=== PATIENT | male | born 1970 | race Two or more races ===

== ENCOUNTER 2018-04-25 12:33 | Emergency (ER) | payer OTHER ==
[2018-04-25 12:47] VITALS: BP 133/88; PULSE 84; TEMP 98.4; BMI 28.2
--- NOTE | 2018-04-25 13:02 | PDOC ---
Attending Attestation - HPI HPI: 04/25/18 13:38 Pt is a 47 yo M with a PMHx of kidney stones who presents to the ED with flank pain. Patient reports pain began one week ago which resolved. However states pain returned today. Patient is currently fasting for Ramadan therefore reports decreased fluid intake. Patient denies fever,chills, n/v. PCP: Dr. Jhon Serrato - Medical Decision Making 04/25/18 13:38 Documentation prepared by Heaven Bocanegra, acting as medical laboratory technical officer for Pippa Beltran MD <Heaven Bocanegra - Last Filed: 04/25/18 13:38> - Resident Resident Name: Daljit Killian - ED Attending Attestation I have performed the following: I have examined & evaluated the patient, The case was reviewed & discussed with the resident, I agree w/resident's findings & plan, Exceptions are as noted - Physicial Exam PE: GENERAL: Awake, alert, and fully oriented, in no acute distress HEAD: No signs of trauma EYES: PERRLA, EOMI, sclera anicteric, conjunctiva clear ENT: Auricles normal inspection, hearing grossly normal, nares patent, oropharynx clear without exudates. Moist mucosa NECK: Normal ROM, supple, no lymphadenopathy, JVD, or masses LUNGS: Breath sounds equal, clear to auscultation bilaterally. No wheezes, and no crackles HEART: Regular rate and rhythm, normal S1 and S2, no murmurs, rubs or gallops ABDOMEN: Soft, nontender, normoactive bowel sounds. No guarding, no rebound. No masses EXTREMITIES: Normal range of motion, no edema. No clubbing or cyanosis. No cords, erythema, or tenderness NEUROLOGICAL: Cranial nerves II through XII grossly intact. Normal speech, normal gait SKIN: Warm, Dry, normal turgor, no rashes or lesions noted. SPINE: No midline tenderness. +Soft tissue tenderness to low back bilaterally. - Medical Decision Making 04/25/18 14:02 Pt with history of kidney stones, presenting with B/L low back pain. He is currently fasting for Ramadan. Poss kidney stone vs pyelo vs musculoskeletal low back pain. <Pippa Beltran - Last Filed: 04/25/18 14:12>
--- NOTE | 2018-04-25 13:03 | PDOC ---
History of Present Illness - General Chief Complaint: Pain, Acute Stated Complaint: KIDNEY PAIN Time Seen by Provider: 04/25/18 12:48 - History of Present Illness Initial Comments: 04/25/18 13:31 The patient is a 47 year old male with a history of kidney stones who presents for evaluation of flank pain. The patient reports an episode of bilateral flank pain 1 week ago that resolved after a few hours. He notes a second episode of flank pain with the right worse than the left today prompting his presentation to the ED for evaluation. He notes that he is currently fasting Ramadan. He describes the pain as a dull ache, but otherwise denies fevers, chills, burning or pain on urination, blood in his urine, nausea, vomiting, abdominal pain, chest pain, or SOB. Past History - Past Medical History Allergies/Adverse Reactions: Allergies Allergy/AdvReac Type Severity Reaction Status Date / Time No Known Allergies Allergy Verified 04/25/18 12:44 COPD: No - Suicide/Smoking/Psychosocial Hx Smoking History: Current some day smoker Number of Cigarettes Smoked Daily: 1 Information on smoking cessation initiated: No Review of Systems - Review of Systems Comments:: 04/25/18 13:37 Constitutional: No fevers, chills, fatigue, malaise HEENT: No Rhinorrhea, nasal congestion, visual changes Cardiovascular: No chest pain, syncope, palpitations, lightheadedness Respiratory: No Cough, SOB, Hemoptysis, Gastrointestinal: No Abdominal pain, Nausea, Vomiting, Constipation, Diarrhea, Melena Genitourinary: Flank Pain. No Dysuria, Frequency, Urgency, Hesitancy, Hematuria , Musculoskeletal: No Myalgia, arthralgia Skin: No rashes, itching, bruising, pallor Neurologic: No Headache, Dizziness, Numbness, Weakness, or Tingling Psychiatric: No Hallucinations. No SI or HI *Physical Exam - Vital Signs Last Vital Signs Temp Pulse Resp BP Pulse Ox 98.4 F 84 18 133/88 98 04/25/18 12:45 04/25/18 12:45 04/25/18 12:45 04/25/18 12:45 04/25/18 12:45 - Physical Exam Comments: 04/25/18 13:38 General Appearance: Nourished. No Apparent Distress HEENT: EOMI, GUILLERMO. No Pharyngeal Erythema, Tonsillar Exudate, Tonsillar Erythema Neck: No Cervical Lymphadenopathy Respiratory/Chest: Lungs Clear, Normal Breath Sounds. No Crackles, Rales, Rhonchi, Wheezing Cardiovascular: Regular Rhythm, Regular Rate. No Murmur, Gallops, Rubs Gastrointestinal/Abdominal: Normal Bowel Sounds, Soft. No Guarding, Rebound, Tenderness Musculoskeletal: Bilateral CVA Tenderness R worse than L Extremity: Normal Capillary Refill Integumentary: Normal Color, Dry, Warm Neurologic: Fully Oriented, Alert, Normal Mood/Affect, Normal Response, ED Treatment Course - LABORATORY CBC & Chemistry Diagram: 04/25/18 14:13 04/25/18 14:13 Medical Decision Making - Medical Decision Making 04/25/18 13:39 The patient is a 47 year old male with a history of kidney stones who presents for evaluation of flank pain. Differential includes but is not limited to: Kidney Stone, UTI, Pyelonephritis, infectious, metabolic derangement. Given the patient's history, we will obtain a cbc, cmp, ua, and spiral CT to evaluate further for possible etiologies. We will treat with iv fluids in the meantime and continue to monitor and reassess. 04/25/18 20:11 CBC, cmp, ua are unremarkable. CT abdomen demonstrates a large gallstone, however no evidence of infectious or acute processes as read by our radiologist. We are comfortable discharging the patient home at this time with primary care provider and surgery follow up. We discussed the results, plan, and return precautions with the patient who voiced understanding and is agreeable with the plan. *DC/Admit/Observation/Transfer Diagnosis at time of Disposition: Flank pain - Discharge Dispostion Disposition: HOME Condition at time of disposition: Stable Decision to Admit order: No - Referrals Referrals: Jhon Serrato MD [Primary Care Provider] - Bob Robert MD [Staff Physician] - - Patient Instructions Printed Discharge Instructions: DI for Flank Pain Additional Instructions: Please return to the ER if you experience concerning or worsening symptoms including worsening pain, fevers, or vomiting. Your lab results were normal here in the ER. Your CT scan showed a 1 cm stone in your gallbladder and would like you to call to schedule a follow up appointment with our surgeon Dr. Robert within 1 week to discuss your ER visit and further management of your symptoms. - Post Discharge Activity
[2018-04-25] MEDS ORDERED: SODIUM CHLORIDE 1,000 ML IV STA (13:14)
[2018-04-25 13:36] LABS: URINE APPEARANCE CLEAR; URINE BILIRUBIN NEGATIVE (<2.0 mg/dL); URINE COLOR LTYELLOW; URINE GLUCOSE (UA) NEGATIVE (NEGATIVE); URINE KETONE NEGATIVE (NEGATIVE); URINE LEUK ESTERASE TRACE (NEGATIVE); URINE NITRITE NEGATIVE (NEGATIVE); URINE PROTEIN NEGATIVE (NEGATIVE); URINE UROBILINOGEN NEGATIVE mg/dL (0.2-1.0)
[2018-04-25 13:37] LABS: EPI CELLS RARE /HPF (FEW); URINE MUCUS RARE
[2018-04-25 14:29] LABS: BASO % 0.5 % (0-2.0); EOS % 2.5 % (0-4.5); HEMATOCRIT 46.1 % (35.4-49); HEMOGLOBIN 15.4 GM/dL (11.7-16.9); LYMPH % 39.9 % (8-40); MCH 29.8 pg (25.7-33.7); MCHC 33.5 g/dl (32.0-35.9); MEAN CELL VOLUME 89.1 fl (80-96); MONO % 8.8 % (3.8-10.2); NEUT % 48.3 % (42.8-82.8); PLATELET COUNT 232 K/MM3 (134-434); RBC 5.18 M/mm3 (4.00-5.60); RDW 12.7 % (11.9-15.9); WHITE BLOOD COUNT 4.8 K/mm3 (4.0-10.0)
[2018-04-25 15:06] LABS: ALK PHOS 69 U/L (45-117); ANION GAP 7 (8-16); BILIRUBIN,TOTAL 0.9 mg/dL (0.2-1.0); BLOOD UREA NITROGEN 11 mg/dL (7-18); CALCIUM 8.7 mg/dL (8.5-10.1); CHLORIDE 104 mmol/L (98-107); CO2 29 mmol/L (21-32); CREATININE 0.8 mg/dL (0.7-1.3); GLUCOSE,RANDOM 95 mg/dL (74-106); SGPT/ALT 27 U/L (12-78); SODIUM 140 mmol/L (136-145); TOT PROT 7.6 g/dl (6.4-8.2)
[2018-04-25 15:13] LABS: POTASSIUM 4.2 mmol/L (3.5-5.1); SGOT/AST 27 U/L (15-37)
--- NOTE | 2018-04-27 12:50 | PDOC ---
Patient Follow-up (Call Back) - Post ED Follow - Up Condition at time of discharge: Stable Disposition at time of original discharge: HOME Reason for Call Back: Abnwl. Microbiology (Ucx +, sen to levaquin and penicilin Pt not on abx, does have non-obs stones b/l, no ureteral stone seen on recent CT Called pt and l/m to call back)
--- NOTE | 2018-04-27 14:03 | PDOC ---
*Physical Exam - Vital Signs Last Vital Signs Temp Pulse Resp BP Pulse Ox 98.4 F 84 18 133/88 98 04/25/18 12:45 04/25/18 12:45 04/25/18 12:45 04/25/18 12:45 04/25/18 12:45 ED Treatment Course - LABORATORY CBC & Chemistry Diagram: 04/25/18 14:13 04/25/18 14:13 - ADDITIONAL ORDERS Additional order review: 04/25/18 12:56 Urine Culture - Final Urine - Urine Clean Catch Streptococcus Bovis 04/25/18 14:13 RBC 5.18 MCV 89.1 MCHC 33.5 RDW 12.7 MPV 8.0 Neutrophils % 48.3 Lymphocytes % 39.9 Monocytes % 8.8 Eosinophils % 2.5 Basophils % 0.5 - Medications Given in the ED: ED Medications Discontinued Medications Generic Name Dose Route Start Last Admin Trade Name Freq PRN Reason Stop Dose Admin Sodium Chloride 1,000 mls @ 1,000 mls/hr 04/25/18 13:14 04/25/18 14:00 Normal Saline - IV 04/25/18 14:13 1,000 mls/hr ASDIR STA Administration Medical Decision Making - Medical Decision Making 04/27/18 14:03 Pt return phone call. States he is feeling well and asymptomatic at this time. Prescription for Cipro sent to pharmacy. Reasons to return discussed with patient *DC/Admit/Observation/Transfer Diagnosis at time of Disposition: Flank pain - Discharge Dispostion Disposition: HOME Condition at time of disposition: Stable - Prescriptions Prescriptions: Ciprofloxacin [Cipro -] 500 mg PO Q12H #14 tablet - Referrals Referrals: Bob Robert MD [Staff Physician] - Jhon Serrato MD [Primary Care Provider] - - Patient Instructions Printed Discharge Instructions: DI for Flank Pain Additional Instructions: Please return to the ER if you experience concerning or worsening symptoms including worsening pain, fevers, or vomiting. Your lab results were normal here in the ER. Your CT scan showed a 1 cm stone in your gallbladder and would like you to call to schedule a follow up appointment with our surgeon Dr. Robert within 1 week to discuss your ER visit and further management of your symptoms. - Post Discharge Activity
== END 2018-04-25 16:26 | disposition home or self-care (01) ==
LOC: JER 12:33
PROC: 3E0337Z Introduction of Electrolytic and Water Balance Substance into Peripheral Vein, Percutaneous Approach (ICD-10-PCS; principal; 2018-04-25)
DX: R10.31 Right lower quadrant pain (principal); Z87.442 Personal history of urinary calculi; F17.210 Nicotine dependence, cigarettes, uncomplicated
CPT/HCPCS: 36415; 74176; 80053; 81003; 81015; 85025; 87086; 87186; 96360; 99282-25; J7030

== ENCOUNTER 2018-11-26 19:07 | Emergency (ER) | payer OTHER ==
--- NOTE | 2018-11-26 19:32 | PDOC ---
Rapid Medical Evaluation Time Seen by Provider: 11/26/18 19:29 Medical Evaluation: Allergies Allergy/AdvReac Type Severity Reaction Status Date / Time No Known Allergies Allergy Verified 04/25/18 12:44 11/26/18 19:29 48 yr male with light headedness, dizzy started today. no PMHX. pt with recent cold symptoms nasal congestion. pt denies headache or fever. Pt took erik seltzer and theraflu today. pt states symptoms worse with looking down. Discharge Disposition - Referrals Referrals: Jhon Serrato MD [Primary Care Provider] - - Patient Instructions - Post Discharge Activity
[2018-11-26 19:34] VITALS: BP 123/83; PULSE 79; TEMP 98.3; BMI 30.6
--- NOTE | 2018-11-26 19:59 | PDOC ---
History of Present Illness - General Chief Complaint: Lightheaded Stated Complaint: Lightheaded Time Seen by Provider: 11/26/18 19:29 History Source: Patient Exam Limitations: No Limitations - History of Present Illness Initial Comments: 11/26/18 20:00 48-year-old male presents to ED with complaints of lightheadedness after getting up today from the dinner table. Patient states also has been having throat pain, nasal congestion for the past week but denies headache, visual changes, weakness, fever or chills. Patient states anticholesterol and is followed by Dr. langford but denies elevated cholesterol or abnormal labs 6 months ago during his annual Timing/Duration: resolved prior to arrival Severity: mild Associated Symptoms: reports: cough, other Past History - Travel Traveled outside of the country in the last 30 days: No - Past Medical History Allergies/Adverse Reactions: Allergies Allergy/AdvReac Type Severity Reaction Status Date / Time No Known Allergies Allergy Verified 04/25/18 12:44 Home Medications: Ambulatory Orders NK [No Known Home Medication] 11/26/18 COPD: No - Suicide/Smoking/Psychosocial Hx Smoking History: Current some day smoker Number of Cigarettes Smoked Daily: 3 Information on smoking cessation initiated: No Hx Alcohol Use: No Drug/Substance Use Hx: No Patient Lives Alone: No Lives with/in: spouse/SO Review of Systems - Review of Systems Able to Perform ROS?: Yes Constitutional: No: Symptoms Reported HEENTM: Yes: Nose Congestion, Throat Pain Respiratory: No: Symptoms reported Cardiac (ROS): Yes: Lightheadedness : No: Symptoms Reported Musculoskeletal: No: Symptoms Reported Neurological: Yes: Dizziness. No: Headache, Weakness Hematologic/Lymphatic: No: Symptoms Reported *Physical Exam - Vital Signs Last Vital Signs Temp Pulse Resp BP Pulse Ox 98.3 F 79 19 123/83 100 11/26/18 19:32 11/26/18 19:32 11/26/18 19:32 11/26/18 19:32 11/26/18 19:32 - Physical Exam General Appearance: Yes: Nourished, Appropriately Dressed. No: Apparent Distress HEENT: positive: EOMI, GUILLERMO, TMs Normal, Pharynx Normal. negative: Pale Conjunctivae Neck: positive: Normal Thyroid, Supple Respiratory/Chest: positive: Lungs Clear, Normal Breath Sounds. negative: Respiratory Distress, Accessory Muscle Use Cardiovascular: positive: Regular Rhythm, Regular Rate. negative: Murmur Gastrointestinal/Abdominal: positive: Soft. negative: Tenderness Extremity: positive: Normal Capillary Refill. negative: Pedal Edema Integumentary: positive: Normal Color, Warm, Moist Neurologic: positive: Motor Strength 5/5 (ambulatory) Moderate Sedation - Procedure Monitoring Vital Signs: Procedure Monitoring Vital Signs Temperature 98.3 F 11/26/18 19:32 Pulse Rate 79 11/26/18 19:32 Respiratory Rate 19 11/26/18 19:32 Blood Pressure 123/83 11/26/18 19:32 O2 Sat by Pulse Oximetry (%) 100 11/26/18 19:32 Heart Score/ECG Review - ECG Intrepretation Rhythm: Regular Rhythm (normal sinus rhythm rate 85. Incomplete right bundle branch block. No previous EKG on file) ED Treatment Course - LABORATORY CBC & Chemistry Diagram: 11/26/18 20:05 11/26/18 20:05 Medical Decision Making - Medical Decision Making 11/26/18 20:02 Chief complaint: Lightheadedness but resolved prior to arrival. Patient history of hyperlipidemia Exam: Vital stable no JVD no acute findings Plan: EKG, CBC, comp, urine 11/26/18 21:16 Laboratory Tests 11/26/18 20:05 Ur Leukocyte Esterase Trace Urine WBC (Auto) 9 Urine RBC (Auto) 1 11/26/18 21:16 Laboratory Tests 11/26/18 11/26/18 20:05 20:05 WBC 6.6 Hgb 16.0 Hct 45.4 MPV 7.8 Absolute Neuts (auto) 3.6 Neutrophils % 54.4 Urine Protein Negative Urine Glucose (UA) Negative Urine Ketones Negative Urine Nitrite Negative Urine Urobilinogen Negative Ur Leukocyte Esterase Trace u cx added. Pt remains asymtomatic 11/26/18 21:25 Laboratory Tests 11/26/18 20:05 Sodium 138 Potassium 4.0 Chloride 102 Carbon Dioxide 31 Anion Gap 6 L BUN 16 Creatinine 0.8 Creat Clearance w eGFR > 60 Random Glucose 110 H Calcium 8.6 Total Bilirubin 0.4 AST 26 ALT 30 Alkaline Phosphatase 93 Total Protein 7.7 Albumin 4.0 *DC/Admit/Observation/Transfer Diagnosis at time of Disposition: Lightheadedness - Discharge Dispostion Disposition: HOME Condition at time of disposition: Good - Referrals Referrals: Jhon Langford MD [Primary Care Provider] - - Patient Instructions Printed Discharge Instructions: DI for Dizziness-Nonvertigo Additional Instructions: At this time your labs that showed no acute findings. A urine culture was sent based on bacteria seen in your urine analysis. If positive for urinary tract infection you'll be contacted. Please follow-up with the primary care physician. - Post Discharge Activity
[2018-11-26 20:16] LABS: BASO % 0.9 % (0-2.0); EOS % 2.1 % (0-4.5); HEMATOCRIT 45.4 % (35.4-49); LYMPH % 35.6 % (8-40); MCH 31.2 pg (25.7-33.7); MCHC 35.3 g/dl (32.0-35.9); MEAN CELL VOLUME 88.3 fl (80-96); MEAN PLT VOLUME 7.8 fl (7.5-11.1); NEUT % 54.4 % (42.8-82.8); PLATELET COUNT 249 K/MM3 (134-434); RBC 5.14 M/mm3 (4.00-5.60); RDW 13.3 % (11.9-15.9); WHITE BLOOD COUNT 6.6 K/mm3 (4.0-10.0)
[2018-11-26 20:18] LABS: URINE APPEARANCE CLEAR; URINE BILIRUBIN NEGATIVE (<2.0 mg/dL); URINE COLOR LTYELLOW; URINE GLUCOSE (UA) NEGATIVE (NEGATIVE); URINE KETONE NEGATIVE (NEGATIVE); URINE LEUK ESTERASE TRACE (NEGATIVE); URINE NITRITE NEGATIVE (NEGATIVE); URINE PROTEIN NEGATIVE (NEGATIVE); URINE UROBILINOGEN NEGATIVE mg/dL (0.2-1.0)
[2018-11-26 20:28] LABS: EPI CELLS RARE /HPF (FEW); URINE MUCUS RARE
[2018-11-26 21:24] LABS: ALK PHOS 93 U/L (45-117); ANION GAP 6 MMOL/L (8-16); BILIRUBIN,TOTAL 0.4 mg/dL (0.2-1); BLOOD UREA NITROGEN 16 mg/dL (7-18); CALCIUM 8.6 mg/dL (8.5-10.1); CHLORIDE 102 mmol/L (98-107); CO2 31 mmol/L (21-32); CREATININE 0.8 mg/dL (0.55-1.3); GLUCOSE,RANDOM 110 mg/dL (74-106); SGOT/AST 26 U/L (15-37); SGPT/ALT 30 U/L (13-61); SODIUM 138 mmol/L (136-145); TOT PROT 7.7 g/dl (6.4-8.2)
--- NOTE | 2018-11-27 13:28 | EKG ---
Test Reason : Blood Pressure : / mmHG Vent. Rate : 086 BPM Atrial Rate : 086 BPM P-R Int : 164 ms QRS Dur : 102 ms QT Int : 368 ms P-R-T Axes : 047 018 041 degrees QTc Int : 440 ms NORMAL SINUS RHYTHM INCOMPLETE RIGHT BUNDLE BRANCH BLOCK BORDERLINE ECG NO PREVIOUS ECGS AVAILABLE Confirmed by LORENZO GARCIA MD ([id number]) on 11/27/2018 1:27:33 PM Referred By: Confirmed By:LORENOZ GARCIA MD
== END 2018-11-26 21:30 | disposition home or self-care (01) ==
LOC: JERFT 19:07
DX: R42 Dizziness and giddiness (principal)
CPT/HCPCS: 36415; 80053; 81003; 81015; 85025; 87086; 93005; 93010; 99281-25

== ENCOUNTER 2019-10-15 15:12 | Inpatient (IN) | payer OTHER ==
--- NOTE | 2019-10-15 15:51 | PDOC ---
Attending Attestation - Resident Resident Name: Dread Carroll - ED Attending Attestation I have performed the following: I have examined & evaluated the patient, The case was reviewed & discussed with the resident, I agree w/resident's findings & plan - HPI HPI: 10/15/19 18:35 49M PMH HTN HLD c/o left chest pain involving the left shoulder that started at 2pm today, lasted about 1 hour, self resolved. Pt took ASA ORTHOTIC/PROSTHETIC PRACTITIONER. Pain was sharp 7 /10 but has gradually decreased. chest pain described as sharp, nonexertional, reproducible in nature, and worse with movement as well as inspiration. now states the pain migrated to the left side of back, worse with movement. Denies palpitations, sob, diaphoresis. Denies f/c, n/v, lightheadedness, dizziness, numbness/tingling/weakness. Denies recent illnesses, cough or congestion. Atraumatic. Pt states he was lifting some heavy boxes - Physicial Exam PE: 10/15/19 15:50 Agree with the resident's HPI and PE as documented in the electronic medical record. NAD, well appearing, EOMI, PERRL, nl conjunctiva, anicteric; neck supple. lungs clear, RRR, left pectoralis TTP, left upper thoracic lateral back TTP. abdomen soft nontender. no rebound, guarding. Midline Back nontender. KOTHARI x4, no focal neuro deficits. No peripheral edema. normal color for ethnicity, WWP. no calf tenderness 10/15/19 18:36 - Medical Decision Making 10/15/19 18:37 Vital Signs Temp Pulse Resp BP Pulse Ox 98 F 72 18 128/90 98 10/15/19 15:15 10/15/19 15:15 10/15/19 15:15 10/15/19 15:15 10/15/19 15:15 DDx chest pain: ACS, coronary vasospasm, NSTEMI, arrhythmia, unstable angina, PE , dissection, PUD, esophageal spasm, GERD, gastritis, costochondritis, pneumonia , pleurisy, pericarditis/myocarditis. dehydration, electrolyte/metabolic derangements. Considered but clinically doubt based on HPI and PE: Low suspicion for pulmonary embolism or dissection. PERC negative, so doubt PE. No evidence of ACS, pericarditis, myocarditis, pulmonary embolism, pneumothorax , pneumonia, Zoster, or esophageal perforation. Historically not abrupt in onset , tearing or ripping, pulses symmetric, no evidence of aortic dissection. Chest pain HEART score 2 which denotes Low risk and probability for ACS, less than 1% risk for MACE at 4-6 wks chest pain free on reeval. well appearing, no sob, no neuro changes initial trop neg, EKG unremarkable, sinus rhythm labs and lytes wnl. CXR clear, no infection/edema/infiltrate, normal cardiac silhouette. 2nd trop/EKG reassess 10/18/19 10:23 Heart Score/ECG Review - History History: Slightly suspicious - Electrocardiogram EKG: Normal - Age Age: 45-65 - Risk Factors Risk Factors Heart Score: Yes Hx Hypercholesterolemia, Yes Hx Hypertension Based on the list above the patient has:: 1-2 risk factors - Troponin Troponin: </= normal limit - Score Heart Score - Total: 2 #1 ECG reviewed & interpreted by me at: 15:20 General ECG Interpretation: Sinus Rhythm, Normal Rate, Normal Intervals Compared to previous ECG there are: No significant change 10/15/19 15:50 EKG normal sinus rhythm 72 bpm, no interval abnormalities, narrow QRS, ST and T wave segments and morphology normal. Nonspecific T wave abnormalities in III only
--- NOTE | 2019-10-15 15:59 | PDOC ---
History of Present Illness - General History Source: Patient Exam Limitations: No Limitations - History of Present Illness Initial Comments: 10/16/19 23:47 HPI: 49M PMH HTN HLD c/o left chest pain involving the left shoulder that started at 2pm today. Pt took two aspirin. Pain was sharp 7/10 but has gradually decreased ; now 3/10. Initially pleuritic but no longer. Pt states pain is reproducible on palpation. Denies palpitations, sob, diaphoresis. Denies f/c, n/v, lightheadedness, dizziness, numbness/tingling/weakness. Denies recent illnesses. Atraumatic. PCP: Dr. Jhon Serrato Denies Meds NKDA + former smoker (1-2PPD for 10 years) - etoh Surgeries: right arm repair s/p accidental amputation <Dread Carroll - Last Filed: 10/16/19 23:47> <Emily Wilson - Last Filed: 10/18/19 10:22> - General Chief Complaint: Chest Pain Stated Complaint: CHEST PAIN Time Seen by Provider: 10/15/19 15:34 Past History - Past Medical History COPD: No - Psycho Social/Smoking Cessation Hx Smoking History: Never smoked Number of Cigarettes Smoked Daily: 3 Hx Alcohol Use: No Drug/Substance Use Hx: No <Dread Carroll - Last Filed: 10/16/19 23:47> <Emily Wilson - Last Filed: 10/18/19 10:22> - Past Medical History Allergies/Adverse Reactions: Allergies Allergy/AdvReac Type Severity Reaction Status Date / Time No Known Allergies Allergy Verified 10/15/19 15:18 Home Medications: Ambulatory Orders Aspirin Coated [Ecotrin -] 81 mg PO DAILY #30 tablet.ec 10/16/19 Atorvastatin Ca [Lipitor] 20 mg PO HS #30 tablet 10/16/19 Review of Systems - Review of Systems Able to Perform ROS?: Yes Comments:: 10/16/19 23:47 ROS: CONSTITUTIONAL: Denies F / C HEENT: Denies headache, lightheadedness, dizziness. Denies sore throat, rhinorrhea. RESP: Denies SOB, cough, orthopnea, LANDERS CARD: Endorses chest pain (CC). Denies palpitations GI: Denies N / V / D, abdominal pain, bloody stool, inability to tolerate PO : Denies dysuria, frequency SKIN: Denies rashes NEURO: Denies numbness, tingling, weakness Is the patient limited Citizen Of [place] proficient: No <Dread Carroll - Last Filed: 10/16/19 23:47> *Physical Exam - Vital Signs Last Vital Signs Temp Pulse Resp BP Pulse Ox 98 F 72 18 128/90 98 10/15/19 15:15 10/15/19 15:15 10/15/19 15:15 10/15/19 15:15 10/15/19 15:15 - Physical Exam Comments: 10/16/19 23:47 PE: GEN: Well appearing, NAD, comfortable. AAOx3 HEENT: NC/AT. No facial asymmetry. Normal voice. Supple neck w/ FROM. CV: +TTP left pectoralis. S1/S2, RRR, no m/r/g LUNG: CTAB, no wheezes, crackles, rales, rhonchi. GI: soft, ndnt, +BS, no guarding, no rebound. No masses. EXTREMITIES: 2+ distal pulses. No LE edema. Right arm surgical scar, no other obvious deformities of extremities. SKIN: warm, dry, normal turgor. no rashes. PSYCH: normal mood and affect NEURO: Moving all extremities well; ambulates w/ normal gait. <Dread Carroll - Last Filed: 10/16/19 23:47> - Vital Signs Last Vital Signs Temp Pulse Resp BP Pulse Ox 98.5 F 84 20 114/77 100 10/16/19 14:00 10/16/19 14:00 10/16/19 14:00 10/16/19 14:00 10/16/19 06:40 <Emily Wilson - Last Filed: 10/18/19 10:22> ED Treatment Course - LABORATORY CBC & Chemistry Diagram: 10/16/19 06:00 10/16/19 06:00 <Dread Carroll - Last Filed: 10/16/19 23:47> - LABORATORY CBC & Chemistry Diagram: 10/16/19 06:00 10/16/19 06:00 - ADDITIONAL ORDERS Additional order review: 10/15/19 15:37 RBC 5.35 MCV 90.8 MCHC 33.4 RDW 13.4 MPV 8.5 Neutrophils % 50.7 Lymphocytes % 40.1 H Monocytes % 7.4 Eosinophils % 1.4 Basophils % 0.4 - RADIOLOGY Radiology Studies Ordered: Category Date Time Status CHEST PA & LAT [RAD] Stat Radiology 10/15/19 17:54 Completed - Medications Given in the ED: ED Medications Discontinued Medications Generic Name Dose Route Start Last Admin Trade Name Freq PRN Reason Stop Dose Admin Acetaminophen 975 mg 10/15/19 18:40 10/15/19 19:05 Tylenol - PO 10/15/19 18:41 Not Given ONCE ONE Aspirin 162 mg 10/15/19 18:09 10/15/19 18:33 Asa - PO 10/15/19 18:10 162 mg ONCE ONE Administration Aspirin 81 mg 10/16/19 10:00 10/16/19 10:18 Ecotrin - PO 81 mg DAILY SURAJ Administration Heparin Sodium (Porcine) 5,000 unit 10/16/19 10:00 10/16/19 10:19 Heparin - SQ Not Given BID SURAJ Ibuprofen 800 mg 10/15/19 18:40 10/15/19 19:05 Motrin - PO 10/15/19 18:41 Not Given ONCE ONE Nitroglycerin 0.4 mg 10/15/19 19:50 10/15/19 20:09 Nitrostat - SL 10/15/19 19:51 0.4 mg ONCE ONE Administration Pantoprazole Sodium 40 mg 10/16/19 10:00 10/16/19 10:18 Protonix - PO 40 mg DAILY SURAJ Administration <Emily Wilson - Last Filed: 10/18/19 10:22> Medical Decision Making - Medical Decision Making 10/15/19 16:01 MDM: 49M PMH HTN HLD c/o reproducible left sided chest pain that has decreased in severity s/p 2 ASA. Atraumatic. DDx - likely MSK; eval for ACS. - CBC, CMP, Cardiac, Coags - EKG - CXR EKG 10/15/19 15:19 HR 72 PA 152 QRS 102 QTc 416 NSR; incomplete RBBB (noted in prior EKG 11/26/18) 10/15/19 17:40 labs reviewed trop neg - rpt trop at 3hrs post initial trop draw Pt feeling well and amenable to plan 10/15/19 18:07 CXR as interpreted by ED team shows no acute pathology Pt took ASA 81 x2 Will give additional 162 ASA 10/15/19 18:30 pt states pain was coming back but not as bad as initial; still reproducible offered tylenol and motrin but pt declined rpt EKG f/u trop 10/15/19 19:23 2nd trop neg f/u rpt EKG pain is most likely MSK dispo home w/ pcp and cardiology f/u; return precautions 10/15/19 19:40 rpt EKG 10/15/19 19:28 HR 75 PA 152 QRS 108 QTc 433 NSR; change concerning for ischemia closer comparison of initial EKG vs 2018 EKG demonstrates change concerning for ischemia - admit tele-obs 10/15/19 19:54 patient amenable to plan for tele-obs - nitro sl //ADMITTED TELE-OBS <Dread Carroll - Last Filed: 10/16/19 23:47> Discharge - Discharge Information Problems reviewed: Yes - Admission No <Dread Carroll - Last Filed: 10/16/19 23:47> <Emily Wilson - Last Filed: 10/18/19 10:22> - Discharge Information Clinical Impression/Diagnosis: Chest pain Qualifiers: Chest pain type: unspecified Qualified Code(s): R07.9 - Chest pain, unspecified Condition: Stable
[2019-10-15 17:08] LABS: BASO % 0.4 % (0-2.0); EOS % 1.4 % (0-4.5); HEMATOCRIT 48.5 % (35.4-49); HEMOGLOBIN 16.2 GM/dL (11.7-16.9); LYMPH % 40.1 % (8-40); MCH 30.4 pg (25.7-33.7); MCHC 33.4 g/dl (32.0-35.9); MEAN CELL VOLUME 90.8 fl (80-96); MEAN PLT VOLUME 8.5 fl (7.5-11.1); MONO % 7.4 % (3.8-10.2); NEUT % 50.7 % (42.8-82.8); PLATELET COUNT 253 K/MM3 (134-434); RBC 5.35 M/mm3 (4.00-5.60); RDW 13.4 % (11.9-15.9); WHITE BLOOD COUNT 6.7 K/mm3 (4.0-10.0)
[2019-10-15 17:37] LABS: ALBUMIN 4.2 g/dl (3.4-5.0); BILIRUBIN,TOTAL 0.8 mg/dL (0.2-1); CALCIUM 9.3 mg/dL (8.5-10.1); CREATININE 0.8 mg/dL (0.55-1.3); POTASSIUM 4.2 mmol/L (3.5-5.1); TOT PROT 7.8 g/dl (6.4-8.2)
[2019-10-15] MEDS ORDERED: ASPIRIN 81 MG CHEWABLE TABLETS PO ONE (18:09)
[2019-10-15] MEDS ORDERED: ASPIRIN 81 MG CHEWABLE TABLETS ONE (18:33)
[2019-10-15] MEDS ORDERED: IBUPROFEN 400 MG TABLET (FP) PO ONE ×2 (18:40→18:58)
[2019-10-15] MEDS ORDERED: ACETAMINOPHEN 500 MG TABLET (FP) PO ONE (18:40)
[2019-10-15] MEDS ORDERED: ACETAMINOPHEN 325 MG TABLET (FP) ONE (18:58)
[2019-10-15] MEDS ORDERED: NITROGLYCERIN SUBLINGUAL 1/150 0.4 MG TAB SL ONE (19:50)
[2019-10-15] MEDS ORDERED: NITROGLYCERIN SUBLINGUAL 1/150 0.4 MG TAB ONE (20:05)
[2019-10-15 21:16] VITALS: BMI 30.5
[2019-10-16 06:19] LABS: BASO % 0.5 % (0-2.0); EOS % 2.2 % (0-4.5); HEMATOCRIT 45.2 % (35.4-49); HEMOGLOBIN 15.5 GM/dL (11.7-16.9); LYMPH % 41.3 % (8-40); MCH 30.8 pg (25.7-33.7); MCHC 34.3 g/dl (32.0-35.9); MEAN CELL VOLUME 89.6 fl (80-96); MEAN PLT VOLUME 7.8 fl (7.5-11.1); MONO % 7.2 % (3.8-10.2); NEUT % 48.8 % (42.8-82.8); PLATELET COUNT 204 K/MM3 (134-434); RBC 5.04 M/mm3 (4.00-5.60); RDW 13.3 % (11.9-15.9)
[2019-10-16 07:40] LABS: ALBUMIN 3.5 g/dl (3.4-5.0); ALK PHOS 63 U/L (45-117); ANION GAP 7 MMOL/L (8-16); BILIRUBIN,TOTAL 0.6 mg/dL (0.2-1); BLOOD UREA NITROGEN 11.6 mg/dL (7-18); CALCIUM 8.8 mg/dL (8.5-10.1); CHLORIDE 106 mmol/L (98-107); CO2 27 mmol/L (21-32); CREATININE 0.8 mg/dL (0.55-1.3); GLUCOSE,RANDOM 92 mg/dL (74-106); POTASSIUM 4.1 mmol/L (3.5-5.1); SGOT/AST 14 U/L (15-37); SGPT/ALT 21 U/L (13-61); SODIUM 139 mmol/L (136-145); TOT PROT 6.8 g/dl (6.4-8.2)
[2019-10-16 08:54] LABS: CHOLESTEROL 242 mg/dL (50-200); HDL CHOLESTEROL 58 mg/dL (40-60); LDL CHOLESTEROL (ONLY DFH) 152 mg/dl (5-100); TRIGLYCERIDES 158 mg/dL (0-150)
[2019-10-16] MEDS ORDERED: HEPARIN NA (PORCINE) 5,000 UNITS/ML 1ML VIAL SQ SCH (10:00)
[2019-10-16] MEDS ORDERED: PANTOPRAZOLE 40 MG TABLET (FP) PO SCH (10:00)
[2019-10-16] MEDS ORDERED: ASPIRIN COATED 81 MG TABLET.EC PO SCH (10:00)
--- NOTE | 2019-10-16 13:42 | CON.CARD ---
Consult Consult Specialty:: cardiology Reason for Consultation:: atypical chest pain - History of Present Illness Chief Complaint: Pt A&ox3; + chest pain that earlier (pressure-like, at rest), has been replaced by a sharp chest pain that is exacerbated by palpation of the left axillary area and above the left breast. History of Present Illness: 04/25/18 13:38 Pt is a 47 yo M with a PMHx of kidney stones, HTN, hypercholesterolemia, who presents to the ED with flank pain. Patient reports pain began one week ago which resolved. However states pain returned today. Patient is currently fasting for Ramada therefore reports decreased fluid intake. Patient denies fever,chills, n/v. Pt also began having left-sided moderate pressure like chest pain at rest that last for a few minutes. He had been lifting heavy , bulky objects over the - History Source History Provided By: Patient, Medical Record Limitations to Obtaining History: No Limitations - Past Medical History Renal/: Yes: Renal Calculi - Alcohol/Substance Use Hx Alcohol Use: No - Smoking History Smoking history: Never smoked Aproximately how many cigarettes per day: 1 Home Medications - Allergies Allergies/Adverse Reactions: Allergies Allergy/AdvReac Type Severity Reaction Status Date / Time No Known Allergies Allergy Verified 10/15/19 15:18 - Home Medications Home Medications: Ambulatory Orders Aspirin Coated [Ecotrin -] 81 mg PO DAILY #30 tablet.ec 10/16/19 Atorvastatin Ca [Lipitor] 20 mg PO HS #30 tablet 10/16/19 Review of Systems - Review of Systems Constitutional: reports: No Symptoms Eyes: reports: No Symptoms HENT: reports: No Symptoms Neck: reports: No Symptoms Cardiovascular: reports: Chest Pain Respiratory: reports: No Symptoms Gastrointestinal: reports: No Symptoms Genitourinary: reports: No Symptoms Breasts: reports: No Symptoms Reported Musculoskeletal: reports: Muscle Pain Integumentary: reports: No Symptoms Neurological: reports: No Symptoms Endocrine: reports: No Symptoms Hematology/Lymphatic: reports: No Symptoms Psychiatric: reports: No Symptoms - Risk Factors Known Risk Factors: Yes: Age, Family History, Gender, Hypertension Vital Signs: Vital Signs Temperature 97.1 F L 10/16/19 10:00 Pulse Rate 71 10/16/19 10:00 Respiratory Rate 18 10/16/19 10:00 Blood Pressure 116/86 10/16/19 10:00 O2 Sat by Pulse Oximetry (%) 100 10/16/19 06:40 - Other Data Labs, Other Data: CBC, BMP 10/16/19 06:00 10/16/19 06:00 Troponin, BNP 10/15/19 10/15/19 10/16/19 15:37 18:40 06:00 Troponin I < 0.02 < 0.02 < 0.02 Troponin, BNP 10/15/19 10/15/19 10/16/19 15:37 18:40 06:00 Troponin I < 0.02 < 0.02 < 0.02 Imaging - Results EKG: Image Reviewed Other: Image Reviewed (telemetry: no arrhythmias) Problem List - Problems (1) Atypical chest pain Assessment/Plan: Pt's chest pain initially was pressure-like, at rest, without change on body movement, lasting about 15 minutes, and occurring once more later in the day. started 24 hours after two days of lifting and moving heavy, bulky objects; it is exacerbateed by moving the left shoulder or turning his head to the left. TNI < 0.02 x 3. BP WNL. Gloucose WNL. EKG NSR , incomplete RBBB (unchanged compared to an EKG form 2 years ago). ? father with hear disease; no family hx CVA. Pt insists on going home rather than waiting for stress test, despite being informed of the dangers of not doing so, including AR and . Start ASA 81 mg daily. He will be given an appontment for both examinations this week as an outpatient. He will return to the ER should unexplained chest pain or dyspnea recur. Start atorvastatin 40 mg daily and s/l NTG 0.4 mg prn. Code(s): R07.89 - OTHER CHEST PAIN (2) Hyperlipidemia Assessment/Plan: start atorvasytatin 40 mg daily. Pt says everyone in his family has elevated lipids. The importance of weight loss and increasing exercise was discussed. Code(s): E78.5 - HYPERLIPIDEMIA, UNSPECIFIED (3) Hypertension Assessment/Plan: Occasional elevated BP readings; f/u serially. Code(s): I10 - ESSENTIAL (PRIMARY) HYPERTENSION
--- NOTE | 2019-10-16 15:27 | HP ---
Admitting History and Physical - Admission History of Present Illness: Pt is a 49 y/o male w/ PMH significant for HTN and HLD. Pt presented to the ER c /o left chest pain involving the left shoulder that lasted for 2-3 hrs. Pain was sharp 7/10 but gradually decreased. However the chest pain was reproducible in the ER and worsen w/ movement. Pt states he was lifting some heavy boxes just prior to the chest pain starting. Pt has had 2 negative cpk/troponins but found to have T wave changes on EKG> - Past Medical History Cardiovascular: Yes: HTN, Hyperlipdemia - Smoking History Smoking history: Never smoked Aproximately how many cigarettes per day: 1 - Alcohol/Substance Use Hx Alcohol Use: No Home Medications - Allergies Allergies/Adverse Reactions: Allergies Allergy/AdvReac Type Severity Reaction Status Date / Time No Known Allergies Allergy Verified 10/15/19 15:18 - Home Medications Home Medications: Ambulatory Orders Aspirin Coated [Ecotrin -] 81 mg PO DAILY #30 tablet.ec 10/16/19 Atorvastatin Ca [Lipitor] 20 mg PO HS #30 tablet 10/16/19 Family Medical History Family History: Unremarkable Review of Systems - Review of Systems Constitutional: reports: No Symptoms Neck: reports: No Symptoms Cardiovascular: reports: Chest Pain Respiratory: reports: No Symptoms Gastrointestinal: reports: No Symptoms Genitourinary: reports: No Symptoms Physical Examination Vital Signs: Vital Signs Temperature 97.1 F L 10/16/19 10:00 Pulse Rate 71 10/16/19 10:00 Respiratory Rate 18 10/16/19 10:00 Blood Pressure 116/86 10/16/19 10:00 O2 Sat by Pulse Oximetry (%) 100 10/16/19 06:40 Constitutional: Yes: Well Nourished, No Distress HENT: Yes: WNL Neck: Yes: WNL, Supple Cardiovascular: Yes: WNL, Regular Rate and Rhythm Respiratory: Yes: WNL, Regular, CTA Bilaterally Gastrointestinal: Yes: WNL, Normal Bowel Sounds, Soft Musculoskeletal: Yes: Other ((+) pain on palpation lt ant chest wall) Edema: No Neurological: Yes: WNL, Alert, Oriented ...Motor Strength: WNL Labs: CBC, BMP 10/16/19 06:00 10/16/19 06:00 Problem List - Problems (1) Chest pain Assessment/Plan: Admitted to tele Serial cpk/troponin Await cardio consult Echo Add ASA Code(s): R07.9 - CHEST PAIN, UNSPECIFIED Qualifiers: Chest pain type: unspecified Qualified Code(s): R07.9 - Chest pain, unspecified (2) Hypertension Assessment/Plan: BP stable Code(s): I10 - ESSENTIAL (PRIMARY) HYPERTENSION (3) Hyperlipidemia Assessment/Plan: Check lipid panel Probably needs lipitor Code(s): E78.5 - HYPERLIPIDEMIA, UNSPECIFIED
[2019-10-16 15:57] VITALS: BP 114/77; PULSE 84; TEMP 98.5
--- NOTE | 2019-10-16 16:59 | EKG ---
Test Reason : Blood Pressure : / mmHG Vent. Rate : 075 BPM Atrial Rate : 075 BPM P-R Int : 152 ms QRS Dur : 108 ms QT Int : 388 ms P-R-T Axes : 052 035 030 degrees QTc Int : 433 ms NORMAL SINUS RHYTHM INCOMPLETE RIGHT BUNDLE BRANCH BLOCK WHEN COMPARED WITH ECG OF 15-OCT-2019 15:19, NO SIGNIFICANT CHANGE WAS FOUND Confirmed by CHEMO CHILDS MD ([id number]) on 10/16/2019 4:59:15 PM Referred By: Confirmed By:CHEMO CHILDS MD
--- NOTE | 2019-10-16 17:04 | EKG ---
Test Reason : Blood Pressure : / mmHG Vent. Rate : 072 BPM Atrial Rate : 072 BPM P-R Int : 152 ms QRS Dur : 102 ms QT Int : 380 ms P-R-T Axes : 045 015 033 degrees QTc Int : 416 ms NORMAL SINUS RHYTHM INCOMPLETE RIGHT BUNDLE BRANCH BLOCK WHEN COMPARED WITH ECG OF 26-NOV-2018 19:42, NO SIGNIFICANT CHANGE WAS FOUND Confirmed by CHEMO CHILDS MD ([id number]) on 10/16/2019 5:03:45 PM Referred By: Confirmed By:CHEMO CHILDS MD
== END 2019-10-16 17:21 | disposition home or self-care (01) | DRG 203 ==
LOC: JER 15:12 → JERBED 19:57 → J4W 20:46 → OBSVTOIN 10-16 02:59
PROVIDERS: ADMIT Internal Medicine; ATTEND Internal Medicine
DX: R07.89 Other chest pain (principal); I10 Essential (primary) hypertension; E78.5 Hyperlipidemia, unspecified; Z87.891 Personal history of nicotine dependence
CPT/HCPCS: 36415; 71046-TC-FY; 80053; 80061; 82550; 84484; 85025; 93005; 93010; 99285-25; G0378

== ENCOUNTER 2020-01-09 22:49 | Emergency (ER) | payer OTHER ==
[2020-01-09 23:00] VITALS: BP 136/95; PULSE 83; TEMP 98.3; BMI 30.8
--- NOTE | 2020-01-10 01:29 | PDOC ---
*Physical Exam - Vital Signs Last Vital Signs Temp Pulse Resp BP Pulse Ox 98.3 F 83 19 136/95 96 01/09/20 22:56 01/09/20 22:56 01/09/20 22:56 01/09/20 22:56 01/10/20 01:00 ED Treatment Course - LABORATORY CBC & Chemistry Diagram: 01/10/20 01:20 01/10/20 01:20 - RADIOLOGY Radiology Studies Ordered: Category Date Time Status ABDOMEN US -LIMITED [US] Stat Ultrasound 01/10/20 01:08 Ordered Medical Decision Making - Medical Decision Making 01/10/20 01:29 Patient seen by the advanced practice provider under my supervision. Ancillary testing reviewed as necessary. I agree with plan as outlined by the advanced practice provider. Discharge - Discharge Information Problems reviewed: Yes Clinical Impression/Diagnosis: Candidiasis, skin or nails Abdominal pain Qualifiers: Abdominal location: right lower quadrant Qualified Code(s): R10.31 - Right lower quadrant pain Disposition: HOME - Additional Discharge Information Prescriptions: Nystatin Ointment [Mycostatin Ointment -] 1 applic TP TID #1 tube - Follow up/Referral Referrals: Jhon Serrato MD [Primary Care Provider] - - Patient Discharge Instructions Patient Printed Discharge Instructions: DI for Abdominal Pain-Adult Additional Instructions: drink plenty of fluids follow up with your doctor as soon as possible. - Post Discharge Activity Work/Back to School Note: Back to Work
[2020-01-10 01:37] LABS: HEMATOCRIT 47.5 % (35.4-49); MCH 30.5 pg (25.7-33.7); MCHC 33.6 g/dl (32.0-35.9); MEAN CELL VOLUME 90.7 fl (80-96); MEAN PLT VOLUME 7.4 fl (7.5-11.1); PLATELET COUNT 244 K/MM3 (134-434); RBC 5.24 M/mm3 (4.00-5.60); RDW 12.9 % (11.9-15.9); WHITE BLOOD COUNT 5.4 K/mm3 (4.0-10.0)
--- NOTE | 2020-01-10 01:42 | PDOC ---
History of Present Illness - General Chief Complaint: Pain Stated Complaint: ABD PAIN Time Seen by Provider: 01/10/20 01:28 History Source: Patient - History of Present Illness Initial Comments: 01/10/20 04:09 49-year-old male complaining of periumbilical/right lower quadrant pain for the last 4 days. Patient reports slight nausea. Patient also reports that he had 2 days of fever with no fever today. Denies constipation, diarrhea, urinary symptoms, testicular pain. Patient also reports that he has a rash to his groin that is very itchy. Past History - Past Medical History Allergies/Adverse Reactions: Allergies Allergy/AdvReac Type Severity Reaction Status Date / Time No Known Allergies Allergy Verified 01/10/20 00:57 Home Medications: Ambulatory Orders Nystatin Ointment [Mycostatin Ointment -] 1 applic TP TID #1 tube 01/10/20 Anemia: No Asthma: No Cancer: No Cardiac Disorders: No CVA: No COPD: No CHF: No Dementia: No Diabetes: No GI Disorders: No Disorders: No HTN: Yes Hypercholesterolemia: Yes Liver Disease: No Seizures: No Thyroid Disease: No - Surgical History Orthopedic Surgery: Yes (5 surgeries right hand in 2012) - Psycho Social/Smoking Cessation Hx Smoking History: Current some day smoker Number of Cigarettes Smoked Daily: 2 Information on smoking cessation initiated: No Hx Alcohol Use: No Drug/Substance Use Hx: No Hx Substance Use Treatment: No Review of Systems - Review of Systems Able to Perform ROS?: Yes Is the patient limited [place] proficient: No Constitutional: No: Symptoms Reported, See HPI, Chills, Diaphoresis, Fever, Loss of Appetite, Malaise, Night Sweats, Weakness, Weight Stable, Unintentional Wgt. Loss, Unexplained wgt Loss, Other ABD/GI: Yes: Nausea, Abdominal cramping : No: Symptoms Reported, See HPI, Burning, Dysuria, Discharge, Frequency, Flank Pain, Hematuria, Incontinence, Pain, Urgency, Testicular Mass, Testicular Swelling, Lesions, Testicular Pain, Other Integumentary: Yes: Rash *Physical Exam - Vital Signs Last Vital Signs Temp Pulse Resp BP Pulse Ox 98.3 F 83 19 136/95 96 01/09/20 22:56 01/09/20 22:56 01/09/20 22:56 01/09/20 22:56 01/10/20 01:00 - Physical Exam General Appearance: Yes: Appropriately Dressed Respiratory/Chest: positive: Lungs Clear, Normal Breath Sounds Gastrointestinal/Abdominal: positive: Tender (RLQ/ periumbilical) Musculoskeletal: positive: Normal Inspection. negative: CVA Tenderness Integumentary: positive: Other (satellite pathces / candiasis) ED Treatment Course - LABORATORY CBC & Chemistry Diagram: 01/10/20 01:20 01/10/20 01:20 ED Progress Note - Progress Note Progress Note: 01/10/20 05:05 abdominal pain P: cbc cmp lipase US CTAP UA Medical Decision Making - Medical Decision Making 01/10/20 05:21 Lung bases are clear. The visualized cardiac chambers are normal size and configuration. There is a gallstone without gallbladder inflammation or biliary duct dilation. Normal liver, pancreas, spleen, adrenal glands and kidneys. The stomach and abdominal small and large bowel are normal. There is no aortic aneurysm. There is no significant retroperitoneal lymphadenopathy. The pelvic small and large bowel are normal. The appendix is normal. The urinary bladder and prostate gland are normal. No pelvic free fluid is identified. There is no significant pelvic Discharge - Discharge Information Problems reviewed: Yes Clinical Impression/Diagnosis: Candidiasis, skin or nails Abdominal pain Qualifiers: Abdominal location: right lower quadrant Qualified Code(s): R10.31 - Right lower quadrant pain Disposition: HOME - Additional Discharge Information Prescriptions: Nystatin Ointment [Mycostatin Ointment -] 1 applic TP TID #1 tube - Follow up/Referral Referrals: Jhon Serrato MD [Primary Care Provider] - - Patient Discharge Instructions Patient Printed Discharge Instructions: DI for Abdominal Pain-Adult Additional Instructions: drink plenty of fluids follow up with your doctor as soon as possible. - Post Discharge Activity Work/Back to School Note: Back to Work
[2020-01-10 02:02] LABS: ALBUMIN 3.9 g/dl (3.4-5.0); BILIRUBIN,TOTAL 0.4 mg/dL (0.2-1); BLOOD UREA NITROGEN 11.6 mg/dL (7-18); CALCIUM 9.1 mg/dL (8.5-10.1); CREATININE 0.8 mg/dL (0.55-1.3); POTASSIUM 4.2 mmol/L (3.5-5.1)
[2020-01-10 03:43] LABS: PH,URINE 5.5 (5.0-8.0); URINE APPEARANCE CLEAR; URINE BILIRUBIN NEGATIVE (NEGATIVE); URINE COLOR YELLOW; URINE GLUCOSE (UA) NEGATIVE (NEGATIVE); URINE KETONE NEGATIVE (NEGATIVE); URINE LEUK ESTERASE NEGATIVE (NEGATIVE); URINE NITRITE NEGATIVE (NEGATIVE); URINE PROTEIN NEGATIVE (NEGATIVE); URINE UROBILINOGEN 0.2 mg/dL (0.2-1.0)
[2020-01-10] MEDS ORDERED: SODIUM CHLORIDE 1,000 ML IV STA (05:04)
[2020-01-10] MEDS ORDERED: ACETAMINOPHEN 1000 MG/100 ML VIAL (NON FORMULARY) IVPB ONE (05:04)
[2020-01-10] MEDS ORDERED: ACETAMINOPHEN INJECTION 100 ML IVPB ONE (05:11)
--- NOTE | 2020-01-10 13:01 | EKG ---
Test Reason : Blood Pressure : / mmHG Vent. Rate : 074 BPM Atrial Rate : 074 BPM P-R Int : 160 ms QRS Dur : 106 ms QT Int : 386 ms P-R-T Axes : 050 028 041 degrees QTc Int : 428 ms NORMAL SINUS RHYTHM INCOMPLETE RIGHT BUNDLE BRANCH BLOCK BORDERLINE ECG WHEN COMPARED WITH ECG OF 15-OCT-2019 19:28, NO SIGNIFICANT CHANGE WAS FOUND Confirmed by Brandon Moya MD ([id number]) on 01/10/2020 1:01:18 PM Referred By: Confirmed By:Brandon Moya MD
== END 2020-01-10 06:16 | disposition home or self-care (01) ==
LOC: JER 22:49
PROC: 3E033NZ Introduction of Analgesics, Hypnotics, Sedatives into Peripheral Vein, Percutaneous Approach (ICD-10-PCS; principal; 2020-01-09)
DX: B37.2 Candidiasis of skin and nail (principal); I10 Essential (primary) hypertension; E78.00 Pure hypercholesterolemia, unspecified
CPT/HCPCS: 36415; 74177-TC; 76705-TC; 80053; 81003; 83690; 84484; 85027; 93005; 93010; 96374; 99284-25; J0131; J7030

== ENCOUNTER 2022-12-04 07:39 | Emergency (ER) | payer OTHER ==
[2022-12-04 08:18] VITALS: BP 143/96; PULSE 79; RESP 18; TEMP 98.5; BMI 31.4
[2022-12-04] MEDS ORDERED: ACETAMINOPHEN 1000 MG/100 ML BAG IVPB ONE (08:30)
[2022-12-04] MEDS ORDERED: SODIUM CHLORIDE 1,000 ML IV STA (08:30)
[2022-12-04] MEDS ORDERED: ONDANSETRON *ODT* 4 MG TABLET SL ONE (08:47)
[2022-12-04] MEDS ORDERED: ACETAMINOPHEN INJECTION 100 ML IVPB ONE (08:50)
[2022-12-04] MEDS ORDERED: ONDANSETRON *ODT* 4 MG TABLET ONE (08:50)
[2022-12-04 09:22] LABS: BASO % 0.3 % (0-2.0); EOS % 1.6 % (0-4.5); HEMATOCRIT 46.6 % (35.4-49); HEMOGLOBIN 15.8 GM/dL (11.7-16.9); LYMPH % 18.9 % (8-40); MCH 30.2 pg (25.7-33.7); MCHC 33.9 g/dl (32.0-35.9); MEAN CELL VOLUME 89.1 fl (80-96); MEAN PLT VOLUME 7.5 fl (7.5-11.1); MONO % 8.3 % (3.8-10.2); NEUT % 70.9 % (42.8-82.8); PLATELET COUNT 254 10^3/uL (134-434); RBC 5.23 M/mm3 (4.00-5.60); RDW 13.3 % (11.9-15.9); WHITE BLOOD COUNT 6.2 K/mm3 (4.0-10.0)
[2022-12-04 09:30] LABS: EPI CELLS 7 /uL (0-25.1); HYALINE CASTS 1 /uL (0-3.1); PH,URINE 5.5 (5.0-8.0); URINE APPEARANCE CLOUDY; URINE BACTERIA 4 /uL (0-1359); URINE BILIRUBIN NEGATIVE (NEGATIVE); URINE COLOR YELLOW; URINE GLUCOSE (UA) NEGATIVE (NEGATIVE); URINE KETONE NEGATIVE (NEGATIVE); URINE LEUK ESTERASE NEGATIVE (NEGATIVE); URINE NITRITE NEGATIVE (NEGATIVE); URINE PROTEIN TRACE (NEGATIVE); URINE RBC 339 /uL (0-23.9); URINE UROBILINOGEN 0.2 mg/dL (0.2-1.0); URINE WBC 7 /uL (0-25.8)
[2022-12-04 09:41] LABS: CALCIUM 9.5 mg/dL (8.5-10.1)
[2022-12-04 09:42] LABS: BLOOD UREA NITROGEN 10.1 mg/dL (7-18)
[2022-12-04 09:46] LABS: BILIRUBIN,TOTAL 0.5 mg/dL (0.2-1); TOT PROT 8.2 g/dl (6.4-8.2)
== END 2022-12-04 12:12 | disposition home or self-care (01) ==
LOC: JER 07:39
PROC: 3E033GC Introduction of Other Therapeutic Substance into Peripheral Vein, Percutaneous Approach (ICD-10-PCS; principal; 2022-12-04)
DX: N20.1 Calculus of ureter (principal)
CPT/HCPCS: 36415; 74177-TC; 80053; 81003; 82150; 83690; 85025; 99285-25; Q0162; Q9967

== ENCOUNTER 2025-08-21 11:06 | Emergency (ER) | payer OTHER ==
[2025-08-21 11:20] VITALS: BP 148/90; PULSE 80; RESP 18; TEMP 98.1; BMI 31.6
[2025-08-21 13:17] LABS: ABSOLUTE IMMATURE GRANULOCYTES 0.02 x10^3/uL (0.0-0.031); BASOPHILS # 0.02 x10^3/uL (0.01-0.08); EOSINOPHIL % 2.3 % (0.8-7.0); EOSINOPHILS # 0.14 x10^3/uL (0.04-0.54); MCHC 33.3 g/dl (32.3-36.5); MEAN CELL VOLUME 89.8 fl (79.0-92.2); MEAN PLT VOLUME 9.3 fl (9.4-12.4); MONOCYTE # 0.43 x10^3/uL (0.30-0.82); MONOCYTE % 7.0 % (5.3-12.2); RDW 12.2 % (12.2-16.1)
[2025-08-21 13:37] LABS: GLUCOSE,RANDOM 87.0 mg/dL (74-106); TOT PROT 7.7 g/dl (6.4-8.2)
[2025-08-21 13:38] LABS: CO2 26.0 mmol/L (21-32)
[2025-08-21 13:40] LABS: ALK PHOS 64.0 U/L (40-150)
[2025-08-21 13:42] LABS: SGPT/ALT 29.0 U/L (0-55)
[2025-08-21 13:43] LABS: CREATININE 0.69 mg/dL (0.55-1.3); SGOT/AST 23.0 U/L (5-34)
[2025-08-21 13:58] LABS: URINE APPEARANCE CLEAR; URINE BILIRUBIN NEGATIVE (NEGATIVE); URINE COLOR YELLOW; URINE GLUCOSE (UA) NEGATIVE (NEGATIVE); URINE KETONE NEGATIVE (NEGATIVE); URINE LEUK ESTERASE NEGATIVE (NEGATIVE); URINE NITRITE NEGATIVE (NEGATIVE); URINE PROTEIN NEGATIVE (NEGATIVE); URINE UROBILINOGEN 0.2 mg/dL (0.2-1.0)
[2025-08-21 14:22] LABS: HCV DIAGNOSTIC IN-HOUSE W/RFLX NON-REACTIVE (NONREACTIVE); HIV INTERPRETATION NEGATIVE (NEGATIVE)
[2025-08-21] MEDS: ACETAMINOPHEN 1000 MG/100 ML BAG IVPB ONE (15:43)
[2025-08-21] MEDS: FAMOTIDINE 20 MG/50 ML IVPB 20 MG/50 ML MG IVPB ONE (15:44)
[2025-08-21] MEDS: MAG HYDROX/AL HYDROX/SIMETH 30 ML UNIT-DOSE CUP PO ONE (15:44)
== END 2025-08-21 18:03 | disposition home or self-care (01) ==
LOC: JER 11:06
DX: R10.13 Epigastric pain (principal); R14.0 Abdominal distension (gaseous)
CPT/HCPCS: 36415; 71045-TC-FY; 76700-TC; 80053; 81003; 83605; 83690; 85025; 86803; 87086; 87389; 99285-25